=== PATIENT | male | born 1990 | race African-American/Black ===

== ENCOUNTER 2018-03-30 01:40 | Emergency (ER) | payer SELFPAY ==
[~2018-03-30] VITALS: Ht 185.4 cm; Wt 78.0 kg
[2018-03-30] MEDS ORDERED: SODIUM CHLORIDE 0.9% 1,000 ML IV ONE (02:56)
[2018-03-30] MEDS ORDERED: MORPHINE SULFATE 4 MG/ML CPJ (NOT FOR IM USE) IV STA (02:56)
[2018-03-30] MEDS ORDERED: ONDANSETRON HCL 4MG/2ML VIAL IV STA (02:56)
[2018-03-30 06:30] VITALS: BP 122/87
== END 2018-03-30 07:05 | disposition home or self-care (01) ==
LOC: ER 01:40
DX: M25.511 Pain in right shoulder (principal); F17.200 Nicotine dependence, unspecified, uncomplicated; F12.10 Cannabis abuse, uncomplicated; V43.52XA Car driver injured in collision with other type car in traffic accident, initial encounter; Y93.89 Activity, other specified; Y92.488 Other paved roadways as the place of occurrence of the external cause
CPT/HCPCS: 71045; 72040; 72170; 73030; 96361; 96374; 96375; 99284; J2270; J2405; J7030